=== PATIENT | male | born 1995 | race African-American/Black ===

== ENCOUNTER 2022-04-29 10:28 | Emergency (ER) | payer BC, SELFPAY ==
--- NOTE | 2022-04-29 10:32 | ED.EAR ---
HPI - Ear Problem General Chief complaint: Ear Stated complaint: EARACHE Time Seen by Provider: 04/29/22 10:36 Source: patient and RN notes reviewed Mode of arrival: ambulatory Limitations: no limitations History of Present Illness HPI Narrative: 27-year-old male presents to the [facility] with complaints of right ear pain, swelling since yesterday. States that he thinks its been swimmer's ear, has been swimming a lot lately. Denies any fevers. No chest pain or abdominal pain. Denies dizziness, headache, nausea, vomiting. Has taken acetaminophen for pain Reports that the blood pressure taken is his normal MD Complaint: ear pain Location: right ear Duration: constant Severity: mild Treatment prior to arrival: oral analgesic Related Data Allergies Allergy/AdvReac Type Severity Reaction Status Date / Time No Known Allergies Allergy Unknown Unverified 04/29/22 10:39 Review of Systems Review of Systems: All systems reviewed & are unremarkable except as noted in HPI and below Constitutional: Constitutional: Reports no additional constitutional complaints, Denies chills and Denies fever(s) Eyes: Eyes: Reports no additional eye complaints ENT: Reports as per HPI, Denies ear discharge and Reports other (ear pain) Cardiovascular: Cardiovascular: Reports no additional cardiovascular complaints Respiratory: Respiratory: Reports no additional respiratory complaints Gastrointestinal: Gastrointestinal: Reports no additional gastrointestinal complaints Musculoskeletal: Musculoskeletal: Reports no additional musculoskeletal complaints Integumentary/Breasts: Skin/Breast: Reports system reviewed and no additional complaints, except as docu Neurologic: Reports system reviewed and no additional complaints, except as documented Psychiatric: Psychiatric: Reports no additional psychiatric complaints Allergic/Immunologic: Allergic/Immunologic: Reports no additional allergic/immunologic complaints [facility] Past Medical History Medical History (Updated 04/29/22 @ 12:54 by Rakel Sidhu APRN) Patient denies medical problems Surgical History Surgical History (Updated 04/29/22 @ 12:54 by Rakel Sidhu APRN) No pertinent past surgical history Family History Family History Mother Patient's mother is in good health Father Patient's father is in good health Sibling Patient's sister is in good health Social History Social History (Updated 04/29/22 @ 12:54 by Rakel Sidhu APRN) Smoking status: Never smoker Second hand tobacco smoke exposure: No Gender identity (if verbalized by the patient): Male Comments At the time of my signature, I reviewed and agree with the nursing past medical, surgical, social, and family history. There is no relevant family history pertinent to the patient complaint. Exam Const: General: healthy appearing, no acute distress and alert Nutritional Appearance: well nourished and obese Orientation/consciousness: patient oriented x3 Limitations: no limitations HENMT: Head: normal to inspection Ears: external ears normal, mastoids normal bilaterally, Abnormal EAC present erythema on the right, edema on the right, EAC tenderness on the right and otic discharge clear (yellow) on the right; no cerumen impaction and no foreign body, periauricular adenopathy on the right and TM abnormal erythematous on the right and perforated with clear discharge on the right General nose exam: Normal external nose present Other: With swelling of the ear canal, only top portion TM seen, erythema noted with perforation, yellow drainage noted. Ear wick placed Eyes: General: appearance normal, both eyes and all related structures Pupils: Equal, round and reactive pupils present Neck: Neck: normal visual inspection, no lymphadenopathy and no meningeal signs Chest: Chest palpation & inspection: normal inspection of the chest Resp: Effort & Inspection
[2022-04-29 10:39] VITALS: BP 154/110; PULSE 121; RESP 18; TEMP 36.8; O2SAT 100
[2022-04-29 11:02] VITALS: BP 151/100; PULSE 113
== END 2022-04-29 11:02 | disposition home or self-care (01) ==
PROVIDERS: Emergency Provider Nurse Practitioner; PCP Family Medicine
DX: H60.331 Swimmer's ear, right ear (principal); H66.011 Acute suppurative otitis media with spontaneous rupture of ear drum, right ear
CPT/HCPCS: 99203; G0463